=== PATIENT | male | born 1980 | race Caucasian/White ===

== ENCOUNTER 2016-11-28 22:01 | Emergency (ER) | payer BC ==
[2016-11-28] MEDS ORDERED: NS 0.9% 1000 ML* 1,000 ML IV ONE (22:19)
[2016-11-28] MEDS ORDERED: Ketorolac INJ* 30 MG/ML 1 ML VIAL IV PUSH ONE (23:13)
[2016-11-28] MEDS ORDERED: Ketorolac INJ* 30 MG/ML 1 ML VIAL ONE (23:15)
[2016-11-28 23:23] LABS: Hematocrit 40 % (42-52); Hemoglobin 13.8 g/dl (14.0-18.0); Mean Corpuscular HGB Conc 34 g/dl (31-36); Mean Corpuscular Hemoglobin 30 pg (27-31); Mean Corpuscular Volume 87 fL (80-94); Mean Platelet Volume 8 um3 (7.4-10.4); Red Blood Count 4.63 10^6/ul (4.0-5.4); Red Cell Distribution Width 13 % (10.5-15); White Blood Count 13.1 10^3/ul (3.5-10.8)
[2016-11-28 23:34] LABS: Albumin 4.3 g/dL (3.2-5.2); BUN/Creatinine Ratio 18.8 (8-20); Calcium 9.3 mg/dL (8.6-10.3); EGFR African American 114.6 (>60); EGFR Non-African American 89.1 (>60); Potassium 3.9 mmol/L (3.5-5.0); Total Bilirubin 0.6 mg/dL (0.2-1.0); Total Protein 7.3 g/dL (6.4-8.9)
[2016-11-28] MEDS ORDERED: Iohexol 300* (CONTRAST) 10 ML SDV IV ONE (23:46)
[2016-11-29] MEDS ORDERED: Acetaminophen TAB* 325 MG PO ONE (01:11)
[2016-11-29] MEDS ORDERED: traMADol TAB* 50 MG PO ONE (01:19)
[2016-11-29] MEDS ORDERED: NS 0.9% 1000 ML* 1,000 ML IV ONE (01:31)
[2016-11-29 02:30] LABS: Urine Bilirubin Negative (Negative); Urine Glucose Negative (Negative); Urine Nitrite Negative (Negative)
[2016-11-29 03:00] VITALS: BP 107/52
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
== END 2016-11-29 03:00 | disposition home or self-care (01) ==
LOC: ED 22:01
DX: S22.32XA Fracture of one rib, left side, initial encounter for closed fracture (principal); S83.92XA Sprain of unspecified site of left knee, initial encounter; M25.562 Pain in left knee; R10.84 Generalized abdominal pain; Z87.891 Personal history of nicotine dependence; W50.0XXA Accidental hit or strike by another person, initial encounter; Y93.69 Activity, other involving other sports and athletics played as a team or group; Y92.9 Unspecified place or not applicable; R50.9 Fever, unspecified
CPT/HCPCS: 36415; 74177; 80053; 81003; 85027; 96374; 96375; 99283; A9270-GY; J1885; Q9967